=== PATIENT | male | born 1995 | race Caucasian/White ===

== ENCOUNTER 2022-06-30 16:06 | Emergency (ER) | payer BC, SELFPAY ==
[2022-06-30 16:10] VITALS: BP 172/62; PULSE 79; RESP 18; TEMP 36.5; O2SAT 100; BMI 25.6
--- NOTE | 2022-06-30 16:33 | ED_ITS ---
HPI - General Adult General Time Seen by Provider: 16:33 Date Seen: 06/30/22 Chief complaint: Nausea/Vomiting Stated complaint: Vomiting Time Seen by Provider: 06/30/22 16:09 Source: patient Mode of arrival: ambulatory Limitations: no limitations History of Present Illness HPI narrative: Prasanth is a 26-year-old male with no past medical history presents emerged [facility] via private car with vomiting. Patient states that since Tuesday he has had ongoing vomiting, on Tuesday and Tuesday around 4 episodes of nonbloody nonbilious vomiting, patient states he thought out something that was frozen on Tuesday, he also was exposed to similar illness in his friend 2 Fridays ago. Denies any diarrhea. No fevers or chills or upper respiratory complaints, he does get some epigastric tenderness when he vomits, he is trying to keep orals down, he has had some lightheadedness and some dizziness associated with this. No syncopal episodes. Patient has no difficulty with making urine. Due to the ongoing vomiting presents emerged department. Related Data Previous Rx's Medication Instructions Recorded metoclopramide HCl 10 mg tablet 10 mg PO Q6H PRN nausea and 06/30/22 (Reglan) vomiting #20 tabs pantoprazole 40 mg tablet,delayed 40 mg PO DAILY 10 days #10 tabs 06/30/22 release (Protonix) Allergies Allergy/AdvReac Type Severity Reaction Status Date / Time No Known Drug Allergies Allergy Verified 06/30/22 16:16 Review of Systems Status of ROS: Reports: 10 or more systems reviewed and unremarkable except as noted in History and below PFSH PFS Social History Smoking Status: Never smoker Do you use any of these nicotine containing products: E-Cigarettes How often do you have a drink containing alcohol: 2-4 times a month AUDIT-C Alcohol total score: 2 Non-prescribed substance use: denies use Exam Narrative: Exam Narrative: General: No obvious distress sitting comfortably HEENT: Pupils equal round reactive to light, oral mucosa is moist Neck: Supple full range of motion : Lungs clear to auscultation bilaterally Heart: Normal sinus rhythm S1-S2 Abdomen: Soft, nondistended, mild tenderness to palpation the epigastric region, bowel sounds present Muscle skeletal: +5 strength upper lower extremities Neuro: Alert awake and oriented x3 Const: Vital Signs, click to edit/add: Vital Signs - 24 hr 06/30/22 16:10 Temperature 97.7 F Pulse Rate [Pulse Oximeter] 79 Respiratory Rate 18 Blood Pressure [Ri ght Upper Arm] 172/62 H Pulse Oximetry 100 Oxygen Delivery Me thod Room Air Course Course Hospital Course: 4:30 PM: AIDET performed. Workup will include IV peripheral, 0.9 normal saline bolus, 4 mg IV Zofran, 40 mg IV Protonix, will obtain CBC, CRP, CMP lipase, suspect gastritis, to treat symptomatically, patient has minimal pain at this time. Differential diagnosis includes gastroenteritis, sick with vomiting, shey wel obstruction, hepatitis, pancreatitis, cholecystitis, appendicitis, constipation, urolithiasis as well as all etiologies Reevaluation(s) Reevaluation #1: Patient was updated on his lab results, CBC showed no leukocytosis, CRP was negative, metabolic panel and lipase within normal limits, patient was still having associated nausea he was given 10 mg of IV Reglan and is feeling better after above care given, he was tolerating orals, plan would be to discharge prescription for Protonix 40 mg and Reglan 10 mg to be sent to his pharmacy, he was given a work note for tomorrow, he needs to follow-up with primary care provider over the next 7-10 days. Return precautions given Time: 18:00 Vital Signs Vital signs: Initial Vital Signs Temperature 97.7 F 06/30/22 16:10 Temperature Source Temporal Artery Scan 06/30/22 16:10 Pulse Rate 79 06/30/22 16:10 Respiratory Rate 18 06/30/22 16:10 Blood Pressure 172/62 H 06/30/22 16:10 Blood Pressure Mean 98 06/30/22 16:10 Blood Pressure Position Supine 06/30/22 16:10 Pulse Oximetry 100 06/30/22 16:10 Oxygen Delivery Method 06/30/22 16:10 Vital Signs Temperature 97.7 F 06/30/22 16:10 Pulse Rate 79 06/30/22 16:10 Respiratory Rate 18 06/30/22 16:10 Blood Pressure 172/62 H 06/30/22 16:10 Pulse Oximetry 100 06/30/22 16:10 Oxygen Delivery Method 06/30/22 16:10 Temperature 97.7 F 06/30/22 16:10 Pulse Rate 79 06/30/22 16:10 Respiratory Rate 18 06/30/22 16:10 Blood Pressure 172/62 H 06/30/22 16:10 Pulse Oximetry 100 06/30/22 16:10 Oxygen Delivery Method 06/30/22 16:10 Medical Decision Making Lab Data Labs: Lab Results 06/30/22 06/30/22 Range/Units 16:50 16:50 WBC 8.21 (4.50-11.00) K/uL RBC 5.01 (4.30-5.90) m/uL Hgb 15.6 (13.5-17.5) gm/dL Hct 44.2 (37.0-53.0) % MCV 88 (80-100) fL MCH 31 (26-34) pg MCHC 35 (32-36) gm/dL RDW Coeff of Arely 11.9 (11.5-15.5) % Plt Count 290 (140-440) K/uL Neut % (Auto) 54.9 (42.0-72.0) % Lymph % (Auto) 34.6 (20-44) % [place] % (Auto) 7.8 (0.0-11.0) % Eos % (Auto) 2.1 (0.0-7.0) % Baso % (Auto) 0.5 (0.0-3.0) % Neut # (Auto) 4.51 (1.7-7.0) K/uL Lymph # (Auto) 2.84 (0.90-2.90) K/uL [place] # (Auto) 0.60 (0.00-0.90) K/UL Eos # (Auto) 0.17 (0.00-0.50) K/uL Baso # (Auto) 0.04 (0.00-0.30) K/uL Sodium 140 (135-149) mmol/L Potassium 3.7 (3.6-5.1) mmol/L Chloride 106 (96-114) mmol/L Carbon Dioxide 25 (20-32) mmol/L BUN 9 (5-24) mg/dL Creatinine 0.7 (0.5-1.5) mg/dL Estimated Creat Clear 182.31 Estimated GFR 131 ml/min Glucose 90 (60-115) mg/dL Calcium 9.5 (8.4-10.6) mg/dL Total Bilirubin 0.6 (0.1-1.5) mg/dL AST 20 (12-35) U/L ALT 18 (4-50) U/L Alkaline Phosphatase 77 (40-150) U/L C-Reactive Protein < 0.5 L (0.5-1.0) mg/dL Total Protein 7.9 (6.0-8.3) g/dL Albumin 4.6 (3.3-5.0) g/dL Lipase 31 (23-300) U/L Discharge Plan Discharge Clinical Impression: Nausea & vomiting Patient Disposition: Home, Self-Care Condition: Improved Instructions: Acute Nausea and Vomiting (ED) Additional Instructions: To take Reglan 10 mg 4 times daily as needed for nausea, Protonix 40 mg once daily over the next 10 days. To follow-up with primary care provider over the next 7-10 days. Return precautions given. Activity Level: No Restrictions Prescriptions: New metoclopramide HCl [Reglan] 10 mg tablet 10 mg PO Q6H PRN (Reason: nausea and vomiting) Qty: 20 0RF pantoprazole [Protonix] 40 mg tablet,delayed release (DR/EC) 40 mg PO DAILY 10 Days Qty: 10 2RF Stand Alone Forms: [employer] Info Instructions
[2022-06-30 16:59] LABS: Basophils Absolute Auto 0.04 K/uL (0.00-0.30); Basophils Percent Auto 0.5 % (0.0-3.0); Eosinophils Absolute Auto 0.17 K/uL (0.00-0.50); Eosinophils Percent Auto 2.1 % (0.0-7.0); Hematocrit 44.2 % (37.0-53.0); Hemoglobin* 15.6 gm/dL (13.5-17.5); Immature Granulocytes Abs Auto 0.01 K/uL (0.00-0.30); Immature Granulocytes Pct Auto 0.1 %; Lymphocytes Absolute Auto 2.84 K/uL (0.90-2.90); Lymphocytes Percent Auto 34.6 % (20-44); Mean Corpuscular HGB Conc 35 gm/dL (32-36); Mean Corpuscular Hemoglobin 31 pg (26-34); Mean Corpuscular Volume 88 fL (80-100); Monocytes Percent Auto 7.8 % (0.0-11.0); Neutrophils Absolute Auto 4.51 K/uL (1.7-7.0); Neutrophils Percent Auto 54.9 % (42.0-72.0); Platelet Count* 290 K/uL (140-440); RDW Coefficient of Variation % 11.9 % (11.5-15.5); Red Blood Count 5.01 m/uL (4.30-5.90); White Blood Count* 8.21 K/uL (4.50-11.00)
[2022-06-30 17:27] LABS: Albumin* 4.6 g/dL (3.3-5.0); Chloride* 106 mmol/L (96-114)
[2022-06-30 17:28] LABS: Potassium* 3.7 mmol/L (3.6-5.1); Sodium* 140 mmol/L (135-149)
[2022-06-30 17:30] LABS: Alkaline Phosphatase* 77 U/L (40-150); Aspartate Amino Transferase* 20 U/L (12-35); Bilirubin Total* 0.6 mg/dL (0.1-1.5); Blood Urea Nitrogen* 9 mg/dL (5-24); Carbon Dioxide* 25 mmol/L (20-32); Creatinine* 0.7 mg/dL (0.5-1.5); Est. Creatinine Clearance* 182.31; Estimated Glomerular Filt Rate 131 ml/min; Lipase* 31 U/L (23-300); Slide Review Reflex No; Total Protein* 7.9 g/dL (6.0-8.3)
[2022-06-30] MEDS: PANTOPRAZOLE SODIUM 40 MG INJ IVP (17:30)
[2022-06-30] MEDS: ONDANSETRON 2 MG/ML inj 4 MG IVP (17:30)
[2022-06-30 17:31] LABS: Alanine Aminotransferase* 18 U/L (4-50); Calcium* 9.5 mg/dL (8.4-10.6); Glucose* 90 mg/dL (60-115)
[2022-06-30 17:39] LABS: C Reactive Protein* < 0.5 mg/dL (0.5-1.0)
[2022-06-30] MEDS: METOCLOPRAMIDE HCL 5 MG/ML INJ 10 MG IVP (18:27)
[2022-06-30] MEDS: 0.9 % SODIUM CHLORIDE 500 ML 500 ML 1000 ML IV (18:28)
--- NOTE | 2022-06-30 19:36 | ED.NURSE ---
Small emesis on assessment. Patient reports vomitting a while ago. Denies current nausea and abdominal pain.
== END 2022-06-30 20:01 | disposition home or self-care (01) ==
PROVIDERS: Emergency Provider Student in an Organized Health Care Education/Training Program
DX: R11.2 Nausea with vomiting, unspecified (principal)
CPT/HCPCS: 36415; 80053; 83690; 85025; 86140; 96374; 96375; 99283; 99284; C9113; J2405; J2765; J7120

== ENCOUNTER 2023-01-11 06:20 | Emergency (ER) | payer BC, SELFPAY ==
[2023-01-11 06:29] VITALS: BP 152/88; PULSE 78; RESP 18; TEMP 36.8; O2SAT 99; BMI 27.7
--- NOTE | 2023-01-11 06:55 | CRLHL7_ITS ---
For Patients: As a result of the Century Cures Act, medical imaging exams and procedure reports are released immediately into your electronic medical record. You may view this report before your referring provider. If you have questions, please contact your health care provider. INDICATION: Right upper quadrant abdomen pain. Nausea. TECHNIQUE: Ultrasound abdomen limited. Sonographic images of the right upper quadrant were obtained using adame-scale and color Doppler images. COMPARISON: None. FINDINGS: Liver: Normal in size and echotexture. No suspicious masses. No intrahepatic biliary dilatation. Portal vein is patent with blood flow toward the liver. Gallbladder: No stones or sludge. Normal wall thickness. No pericholecystic fluid. Common bile duct: 5 mm. Pancreas: Unremarkable. Right kidney: Normal in size. Normal echotexture and cortex. No suspicious masses, stones, or hydronephrosis. Vasculature: Proximal abdominal aorta and IVC are unremarkable. IMPRESSION: Unremarkable right upper quadrant ultrasound. Dictated by Enzo Meier MD @ 01/11/2023 8:18:13 AM (Electronically Signed)
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
[2023-01-11 07:11] LABS: Basophils Absolute Auto 0.03 K/uL (0.00-0.30); Basophils Percent Auto 0.5 % (0.0-3.0); Eosinophils Absolute Auto 0.11 K/uL (0.00-0.50); Hematocrit 46.6 % (37.0-53.0); Hemoglobin* 16.2 gm/dL (13.5-17.5); Immature Granulocytes Abs Auto 0.01 K/uL (0.00-0.30); Immature Granulocytes Pct Auto 0.2 %; Lymphocytes Absolute Auto 1.92 K/uL (0.90-2.90); Lymphocytes Percent Auto 34.2 % (20-44); Mean Corpuscular HGB Conc 35 gm/dL (32-36); Mean Corpuscular Hemoglobin 31 pg (26-34); Mean Corpuscular Volume 89 fL (80-100); Neutrophils Absolute Auto 2.98 K/uL (1.7-7.0); Neutrophils Percent Auto 53.1 % (42.0-72.0); Platelet Count* 280 K/uL (140-440); Red Blood Count 5.22 m/uL (4.30-5.90); White Blood Count* 5.61 K/uL (4.50-11.00)
[2023-01-11] MEDS: 0.9 % SODIUM CHLORIDE 1000 ml 1,000 ML IV (07:13)
[2023-01-11 07:14] LABS: Slide Review Reflex No
[2023-01-11] MEDS: ONDANSETRON 2 MG/ML inj 4 MG IVP (07:18)
[2023-01-11 07:24] LABS: Albumin* 4.7 g/dL (3.3-5.0); Chloride* 106 mmol/L (96-114); Sodium* 140 mmol/L (135-149)
[2023-01-11 07:25] LABS: Potassium* 3.8 mmol/L (3.6-5.1)
[2023-01-11 07:27] LABS: Creatinine* 0.8 mg/dL (0.5-1.5); Est. Creatinine Clearance* 158.14; Estimated Glomerular Filt Rate 125 ml/min
[2023-01-11 07:28] LABS: Alanine Aminotransferase* 42 U/L (4-50); Alkaline Phosphatase* 71 U/L (40-150); Aspartate Amino Transferase* 27 U/L (12-35); Bilirubin Total* 0.9 mg/dL (0.1-1.5); Blood Urea Nitrogen* 15 mg/dL (5-24); Calcium* 9.3 mg/dL (8.4-10.6); Carbon Dioxide* 27 mmol/L (20-32); Glucose* 91 mg/dL (60-115); Lipase* 199 U/L (23-300)
[2023-01-11 07:32] LABS: C Reactive Protein* < 0.5 mg/dL (0.5-1.0)
[2023-01-11] MEDS: OMEPRAZOLE 20 MG CAPSULE DR PO (07:54)
[2023-01-11 07:57] VITALS: BP 125/76; PULSE 60; RESP 14; O2SAT 97
[2023-01-11 08:07] LABS: Appearance Urine Clear (Clear); Bilirubin Urine Negative (Negative); Blood Urine Negative (Negative); Color Urine Yellow (Yellow); Glucose Urine Negative (Negative); Ketones Urine Negative (Negative); Leukocyte Esterase Urine Negative (Negative); Nitrite Urine Negative (Negative); Protein Urine Negative (Negative); pH Urine 8.5 (5.0-8.5)
== END 2023-01-11 08:41 | disposition home or self-care (01) ==
PROVIDERS: Emergency Provider Family Medicine
DX: K29.70 Gastritis, unspecified, without bleeding (principal)
CPT/HCPCS: 36415; 76705; 80053; 81003; 83690; 85025; 86140; 96361; 96374; 99284; A9270; J2405; J7030